=== PATIENT | female | born 1965 | race African-American/Black ===

== ENCOUNTER 2016-09-04 14:55 | Emergency (ER) | payer SELFPAY ==
[~2016-09-04] VITALS: Ht 172.7 cm; Wt 80.0 kg
[~2016-09-04 14:55] MED LIST: DICL50TA3 PO; ROBA750T PO
[2016-09-04 14:56] VITALS: BP 162/80; PULSE 87; RESP 15; TEMP 98; O2SAT 99
[2016-09-04] MEDS ORDERED: ROBA500T PO (15:54)
[2016-09-04] MEDS ORDERED: IBUP800T23 PO (15:54)
--- NOTE | 2016-09-04 15:54 | PD ---
HPI Chief Complaint: Musculoskeletal Complaint Time Seen by Provider: 15:50 Travel History International Travel<30 days: No Contact w/Intl Traveler<30days: No Traveled to known affect area: No History of Present Illness HPI 51-year-old female presents to the emergency Department with complaint of right posterior knee and posterior upper leg pain since yesterday. 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 She denies paresthesias, loss of sensation, decreased range of motion, decreased strength to the affected extremity. Pain is worse with palpation and ambulation. Pain is decreased while at rest. Denies history of DVT or PE. Denies active quadrants. Denies oral contraception use. Denies recent travel, trauma, hospitalization, surgery. Denies leg edema. Denies fever, chills, nausea, vomiting. Denies chest pain, shortness of breath, abdominal pain. Has not taken any medications or tried any treatments to leaving her symptoms. Allergies to penicillin. Does not have an established primary care provider. No other modifying factors or associated signs and symptoms. PFSH Past Medical History Cancer: No Cardiovascular Problems: Yes Diabetes: No Diminished Hearing: No Endocrine: No Headaches: Yes Hepatitis: No Hiatal Hernia: No Hypertension: Yes Immune Disorder: No Musculoskeletal: Yes (BACK PAIN) Neurologic: No Psychiatric: No Reproductive: No Respiratory: No Thyroid Disease: No Menopausal: Yes : 4 Para: 3 : 1 Tubal Ligation: Yes Past Surgical History Body Medical Devices: NONE Gynecologic Surgery: Yes (TUBAL LIGATION) Other Surgery: Yes Social History Alcohol Use: Yes (occ) Tobacco Use: Yes (1 PPD) Substance Use: No Allergies-Medications (Allergen,Severity, Reaction): Coded Allergies: Penicillin (Verified Allergy, Severe, HIVES, 06/08/16) PT NOT SURE- HAPPENED IN CHILDHOOD Reported Meds & Prescriptions Reported Meds & Active Scripts Active Ibuprofen 800 Mg Tab 800 Mg PO Q6HR PRN Robaxin (Methocarbamol) 500 Mg Tab 500 Mg PO QID PRN Robaxin (Methocarbamol) 750 Mg Tab 1,500 Mg PO TID [address] (Diclofenac Sodium) 50 Mg Tabdr 50 Mg PO TID Review of Systems Except as stated in HPI: all other systems reviewed are Neg Physical Exam Narrative GENERAL: Well-nourished, well-developed female patient, in no acute distress; afebrile, nontoxic-appearing SKIN: Warm and dry. HEAD: Atraumatic. Normocephalic. EYES: Pupils equal and round. No scleral icterus. No injection or drainage. ENT: Mucosa pink and moist. Airway patent. NECK: Trachea midline. CARDIOVASCULAR: Regular rate. RESPIRATORY: No accessory muscle use. GASTROINTESTINAL: Rounded. MUSCULOSKELETAL: Right lower extremity supple and non-tense with 2+ pedal pulse and sensory intact without erythema or edema. Reproducible tenderness on palpation to the posterior knee and posterior thigh; areas are without erythema , edema. Ambulatory in hallway with normal gait. No obvious deformities. No clubbing. No cyanosis. No edema. NEUROLOGICAL: Awake and alert. Oriented 3. No obvious cranial nerve deficits. Motor grossly within normal limits. Normal speech. PSYCHIATRIC: Appropriate mood and affect; insight and judgment normal. Data Data Last Documented VS Vital Signs Date Time Temp Pulse Resp B/P Pulse Ox O2 Delivery O2 Flow Rate FiO2 09/04/16 14:56 98.0 87 15 162/80 99 Orders Ibuprofen (Motrin) (09/04/16 16:00) Methocarbamol (Robaxin) (09/04/16 16:00) MDM Medical Decision Making Medical Screen Exam Complete: Yes Emergency Medical Condition: Yes Medical Record Reviewed: Yes Differential Diagnosis Muscle strain, muscle cramp, knee bursitis, less likely DVT Narrative Course 51-year-old female with right posterior knee and thigh pain. The right lower extremity supple and non-tense with 2+ pedal pulses and sensory intact without erythema or edema. Using Wells criteria for DVT the patient scores in the low risk group and DVT is "unlikely "according to Wells DVT studies. I discussed with the patient and offered to do an ultrasound and patient declined at this time. I discussed reasons for the patient to return to the emergency department and she verbalized understanding and agreement. Robaxin and ibuprofen administered in the ER. Robaxin and ibuprofen prescribed for home. Patient verbalizes understanding and agreement with treatment plan. Patient is medically cleared and stable for discharge. Discussed reasons to return to the emergency department. Instructed patient to follow up with primary care provider. Patient agrees with treatment plan. The patients vital signs are stable and the patient is stable for outpatient follow-up and treatment. Patient discharged home, stable and in no acute distress. Diagnosis Primary Impression: Muscle strain of right lower extremity Qualified Code: S86.911A - Muscle strain of right lower extremity, initial encounter Referrals: Primary Care Physician Patient Instructions: General Instructions, Leg Cramps (ED), Leg Pain (ED), Muscle Strain (ED) Departure Forms: Tests/Procedures, Work Release Enter return to work date: Sep 05, 2016 Additional Instructions: Tylenol or ibuprofen as directed and as needed for pain Robaxin as prescribed and as needed for muscle spasms Heating pad and/or ice to affected area to reduce pain Avoid aggravating activities; increase activity as tolerated Follow-up with primary care provider Return to emergency department immediately with worsening of symptoms, particularly as discussed Med/Other Pt SpecificInfo: Prescription(s) given Scripts Ibuprofen 800 Mg [id number] Mg PO Q6HR PRN (PAIN) #30 TAB Ref 0 Prov:Edelmira Ramos 09/04/16 Methocarbamol (Robaxin)500 Mg [id number] Mg PO QID PRN (MUSCLE SPASM) #30 TAB Ref 0 Prov:Edelmira Ramos 09/04/16 Disposition: 01 DISCHARGE HOME Condition: Stable Edelmira Ramos Sep 04, 2016 15:54
[2016-09-04] MEDS ORDERED: IBUPROFEN 800 MG TAB PO ONE (16:00)
[2016-09-04] MEDS ORDERED: METHOCARBAMOL 500 MG TAB PO ONE (16:00)
== END 2016-09-04 17:36 | disposition home or self-care (01) ==
LOC: NEPB 14:55
DX: S86.911A Strain of unspecified muscle(s) and tendon(s) at lower leg level, right leg, initial encounter (principal); I10 Essential (primary) hypertension; F17.210 Nicotine dependence, cigarettes, uncomplicated; X50.9XXA Other and unspecified overexertion or strenuous movements or postures, initial encounter; Y93.E9 Activity, other interior property and clothing maintenance; Y92.59 Other trade areas as the place of occurrence of the external cause; Y99.0 Civilian activity done for income or pay
CPT/HCPCS: 99283

== ENCOUNTER 2017-07-16 10:31 | Emergency (ER) | payer SELFPAY ==
[~2017-07-16] VITALS: Ht 172.7 cm; Wt 85.5 kg
[~2017-07-16 10:31] MED LIST changes: +IBUP1TAB7 PO; +ROBA500T PO
[2017-07-16 10:41] VITALS: BP 143/85; PULSE 76; RESP 14; TEMP 98.5; O2SAT 99
== END 2017-07-16 11:44 | disposition left against medical advice (07) ==
LOC: NEDAMB 10:31
DX: R11.2 Nausea with vomiting, unspecified (principal); Z53.21 Procedure and treatment not carried out due to patient leaving prior to being seen by health care provider
CPT/HCPCS: 99281